=== PATIENT | female | born 1970 | race Caucasian/White ===

== ENCOUNTER 2017-01-25 20:20 | Emergency (ER) | payer OTHER, BC ==
[~2017-01-25] VITALS: Ht 172.7 cm; Wt 77.1 kg
[~2017-01-25 20:20] MED LIST: BACTRIM DS 8001 TA1 PO; KEFLEX500 MG PO; NAPROSYN500 MG PO; VIBRAMYCIN100 MG PO; VICODIN 5/500 505 MG PO; Vicodin 5/500 505 MG PO
== END 2017-01-25 23:36 | disposition home or self-care (01) ==
LOC: ED 20:20
DX: S41.111A Laceration without foreign body of right upper arm, initial encounter (principal); S40.811A Abrasion of right upper arm, initial encounter; R60.0 Localized edema; R10.12 Left upper quadrant pain; F17.200 Nicotine dependence, unspecified, uncomplicated; Z98.890 Other specified postprocedural states; Z98.51 Tubal ligation status; Z91.013 Allergy to seafood; V18.2XXA Unspecified pedal cyclist injured in noncollision transport accident in nontraffic accident, initial encounter; Y93.89 Activity, other specified; Y92.89 Other specified places as the place of occurrence of the external cause; Y99.9 Unspecified external cause status

== ENCOUNTER 2021-01-13 20:12 | Emergency (ER) | payer MEDICAID ==
[~2021-01-13] VITALS: Ht 165.1 cm; Wt 92.5 kg
[2021-01-13 21:35] LABS: BASO % 0.3 % (0.0-1.0); EOS # 0.2 10*3/uL (0.0-0.4); EOS % 1.8 % (1.0-4.0); HEMATOCRIT 42.3 % (37.0-47.0); LYMPH # 2.6 10*3/uL (1.3-4.4); LYMPH % 23.5 % (27.0-41.0); MEAN CELL VOLUME 95.3 fl (81.0-99.0); MEAN CORPUSCULAR HGB 31.1 pg (27.0-31.0); MEAN CORPUSCULAR HGB CONC 32.6 g/dl (33.0-37.0); MEAN PLATELET VOLUME 10.9 fl (9.6-12.3); MONO # 0.7 10*3/uL (0.1-1.0); MONO % 6.5 % (3.0-9.0); NEUT # 7.4 10*3/uL (2.3-7.9); NEUT % 67.6 % (47.0-73.0); PLATELET COUNT AUTOMATED 374 10*3/uL (130-400); RED BLOOD COUNT 4.44 10*6/uL (4.10-5.10); RED CELL DISTRI WIDTH 12.9 % (0-14.5); WHITE BLOOD COUNT 10.9 10*3/uL (4.8-10.8)
[2021-01-13 21:53] LABS: ALBUMIN 3.5 gm/dl (3.1-4.5); ALKALINE PHOSPHATASE 84 U/L (45-117); BUN 12 mg/dl (7-24); CHLORIDE 106 mmol/L (98-107); CREATININE 0.86 mg/dL (0.55-1.02); POTASSIUM 4.4 mmol/L (3.5-5.1); SGOT/AST 15 IU/L (3-35); SGPT/ALT 28 U/L (12-78); SODIUM 139 mmol/L (136-145); TOTAL PROTEIN 7.7 gm/dL (6.4-8.2)
[2021-01-13] MEDS ORDERED: PREDNISONE20 M1 PO (22:22)
== END 2021-01-13 23:43 | disposition home or self-care (01) ==
LOC: ED 20:12
PROVIDERS: Nurse Practitioner Family
DX: J20.8 Acute bronchitis due to other specified organisms (principal); Z20.822 Contact with and (suspected) exposure to COVID-19; Z91.013 Allergy to seafood; Z91.040 Latex allergy status

== ENCOUNTER 2021-04-09 12:46 | Emergency (ER) | payer MEDICAID ==
[~2021-04-09 12:46] MED LIST changes: +PREDNISONE20 M1 PO
== END 2021-04-09 16:28 | disposition home or self-care (01) ==
LOC: ED 12:46
DX: R07.9 Chest pain, unspecified (principal); Z20.822 Contact with and (suspected) exposure to COVID-19